=== PATIENT | female | born 1985 | race Caucasian/White ===

== ENCOUNTER → 2019-06-21 | Outpatient (CLI) | payer BC ==
[~2019-06-21] MED LIST: IOHEXOL-350 50ML VIAL IV ONE
== END ==
LOC: EDUNIT# 09:00 → RAH 09:06
PROVIDERS: ATTEND Obstetrics & Gynecology
DX: N97.1 Female infertility of tubal origin (principal)
CPT/HCPCS: 58340; 74740; Q9967